=== PATIENT | male | born 1965 | race Caucasian/White ===

== ENCOUNTER 2016-06-15 12:24 | Emergency (ER) | payer MEDICARE ==
[2016-06-15 14:15] LABS: HEMOGLOBIN 17.1 gm/dl (14.0-17.5); RED BLOOD COUNT 5.4 M/UL (4.20-5.50); WHITE BLOOD COUNT 8.7 K/UL (4.5-11.0)
[2016-06-15 14:40] LABS: BUN/CREATININE RATIO 14 (0-10)
== END 2016-06-16 01:10 | disposition short-term general hospital (02) ==
LOC: ER1 12:24
PROVIDERS: Emergency Medicine
DX: R10.12 Left upper quadrant pain (principal); F10.20 Alcohol dependence, uncomplicated; R44.3 Hallucinations, unspecified; M79.1 Myalgia; F17.200 Nicotine dependence, unspecified, uncomplicated; W19.XXXA Unspecified fall, initial encounter
CPT/HCPCS: 36415; 70450; 80053; 80307; 81001; 82140; 83690; 83735; 85025; 87086; 93005; 96361; 96374; 96376; 99285; G0480; J2060; J3411; J3475